=== PATIENT | male | born 1965 | race Caucasian/White ===

== ENCOUNTER 2025-04-10 17:53 | Emergency (ER) | payer SELFPAY ==
[2025-04-10 17:57] VITALS: BP 136/86
--- NOTE | 2025-04-10 19:41 | ED.GENMED ---
History of Present Illness
General
Chief Complaint: Skin Surface Trauma
Time Seen by Provider: 04/10/25 19:20
History of Present Illness
History of Present Illness:
59-year-old male presents to the emergency department for evaluation of a scrotal wound sustained when his friend's dog bit him through his pants. Bleeding is now controlled. Not on anticoagulants. Last tetanus is unknown.
Past History
Past History
ED Past Medical History: None and Psychiatric
ED Past Surgical History: None
Social History
Tobacco: Smoker
Alcohol: Occasional
Drug: None
Personal:
Living: with family
Employment: Employed
Review of Systems
Review of Systems
Allergies reviewed?: Yes
All Other Systems: ROS reviewed and negative except as documented in HPI and ROS
Phy Exam
Physical Exam
Physical Exam:
GEN: Well appearing, NAD, WDWN
HEENT: Oral mucosa moist, no scleral icterus
Cardiac: Regular rate
Lung: No respiratory distress, no tachypnea
: 1.5 cm V-shaped laceration to the inferior midline scrotum, partial-thickness, does not violate the testicular zone
MSK: No gross deformity or injuries
Skin: Good color, no pallor or jaundice, no rashes
Neuro: AO x3, moves all extremities freely
Psych: Calm, cooperative
Course
Orders/Labs/Results
Orders:
Orders
04/10/25 19:44
Amoxicillin 875 mg/Clav 125 mg [Augmentin 875 mg/125 mg] 1 tablet PO NOW STA
Tetanus/Diphth/Acelpertussis [Adacel] 0.5 ml IM .ONCE ONE
Vital Signs
Initial and Last Documented VS:
Initial Vital Signs
Temp Pulse Resp BP Pulse Ox
98.1 F 92 18 136/86 97
04/10/25 17:57 04/10/25 17:57 04/10/25 17:57 04/10/25 17:57 04/10/25 17:57
Last Documented Vital Signs
Temp Pulse Resp BP Pulse Ox
98.1 F 92 18 136/86 97
04/10/25 17:57 04/10/25 17:57 04/10/25 17:57 04/10/25 17:57 04/10/25 17:57
Procedures
Laceration Closure
Scrotum:
Status of Wound: clean
Size of Wound in cm: 1.5
Description of Wound Edges: sharp
Preparation: cleaned with saline
Anesthesia: 1% Lidocaine with epi
Type of Closure: single layer closure
Skin Closure Material: 5-0 prolene
Number of sutures: 2
Additional information:
Loosely approximated
MDM/Problems Addressed
MDM/Problems Addressed:
Wound was loosely approximated after copious irrigation will cover with antibiotics, tetanus updated
*Pulse Oximetry
Patient hypoxic: no (97% on room air)
*Critical Care Note
Total Time (30-74mins, 75-104mins- exclusive of procedures): Not Applicable
ED Attending Note
-
Portions of this chart may have been created with voice recognition software.� Occasional wrong word or��sound alike� substitutions may have occurred due to the inherent limitations of voice recognition software.
Discharge Plan
Departure
Patient Disposition: Home (Routine Discharge)
Date of Disposition: 04/10/25
Time of Disposition: 19:43
Patient with high blood pressure during this ER visit?: No
Discharge Problem:
Dog bite of Scrotum
Instructions: Laceration Repair With Stitches (DC)
Prescriptions:
New
amoxicillin-pot clavulanate 875-125 mg tablet
1 tab PO BID Qty: 9 0RF
No Action
No Current Medications
Activity Restrictions/Additional Instructions:
Keep the wound dry for the next 24 hours then starting tomorrow night you may begin to wash gently with soap and water. The sutures need to be removed in 10 days
Return to the ER if the area becomes very red, hot, or painful as a infection will require removal of sutures urgently
Interventions
Interventions:
*Risk Screen - Suicide Last Done: 04/10/25 19:32
*General Assessment Last Done: 04/10/25 19:58
*Neglect/Abuse Screening Last Done: 04/10/25 19:32
*ED- Fall Risk Assessment Last Done: 04/10/25 19:32
*ED COVID-19 Vaccine History Last Done: 04/10/25 19:32
*Nursing Disposition Last Done: 04/10/25 19:58
ED-Skin Assessment Last Done: 04/10/25 19:00
Discharge Date and Time
Discharge Date/Time: 04/10/25 19:58
Print Language: SWISS
[2025-04-10] MEDS: AUGMENTIN 875 MG/125 MG 1 TABLET PO (19:53)
[2025-04-10] MEDS: ADACEL 0.5 ML IM (19:53)
== END 2025-04-10 19:58 | disposition home or self-care (01) ==
LOC: EMR 17:53
PROVIDERS: EMERGENCY PHYSICIAN Student in an Organized Health Care Education/Training Program
DX: S31.31XA Laceration without foreign body of scrotum and testes, initial encounter (principal); W54.0XXA Bitten by dog, initial encounter; F17.200 Nicotine dependence, unspecified, uncomplicated; Z23 Encounter for immunization
CPT/HCPCS: 12001; 90471; 99283; 90715